=== PATIENT | female | born 1985 | race Caucasian/White ===

== ENCOUNTER → 2021-02-27 | Outpatient (CLI) | payer BC ==
[2021-02-27 09:01] LABS: BASO # 0.1 (0.02-0.10); EOS # 0.3 (0.04-0.40); EOS % 3.5 % (1.0-5.0); HEMATOCRIT 43.4 % (37.0-47.0); HEMOGLOBIN 13.9 g/dL (12.5-16.0); LYMPH# 2.2 (1.50-4.00); MEAN CELL VOLUME 89 fl (78-100); MEAN CORPUSCULAR HEMOGLOBIN 29 pg (27-31); MEAN CORPUSCULAR HGB CONC 32 g/dL (33-37); MEAN PLATELET VOLUME 10.6 fl (7.4-10.4); MONO # 0.5 (0.20-0.80); NEU # 4.7 (1.40-6.50); PLATELET COUNT 265 K/mm3 (130-400); RED BLOOD COUNT 4.86 M/mm3 (4.10-5.30); RED CELL DISTRIBUTION WIDTH 13.2 % (11.5-14.5); WHITE BLOOD COUNT 7.7 K/mm3 (4.8-10.8)
[2021-02-27 09:08] LABS: ALBUMIN 4.1 g/dL (3.5-5.0); POTASSIUM 4.6 mmol/L (3.5-5.1)
[2021-02-27 09:09] LABS: CALCIUM 9.1 mg/dL (8.3-10.5)
[2021-02-27 09:11] LABS: TOTAL PROTEIN 7.7 g/dL (6.4-8.3)
[2021-02-27 09:12] LABS: TOTAL BILIRUBIN 0.5 mg/dL (0.2-1.2)
== END ==
LOC: LAB 08:29
PROVIDERS: Nurse Practitioner
DX: R42 Dizziness and giddiness (principal)

== ENCOUNTER → 2021-08-14 | Outpatient (CLI) | payer BC | LOC: LAB 14:18 | DX: Z11.52 Encounter for screening for COVID-19 (principal); J06.9 Acute upper respiratory infection, unspecified; Z20.822 Contact with and (suspected) exposure to COVID-19 ==

== ENCOUNTER → 2021-09-11 | Outpatient (CLI) | payer BC | LOC: RAD 15:14 | DX: M79.672 Pain in left foot (principal) ==

== ENCOUNTER → 2021-09-18 | Outpatient (CLI) | payer BC ==
[2021-09-18 11:29] LABS: BASO # 0.09 K/mm3 (0.02-0.10); EOS # 0.32 K/mm3 (0.04-0.40); EOS % 3.7 % (1.0-5.0); HEMOGLOBIN 14.5 g/dL (12.5-16.0); LYMPH# 2.87 K/mm3 (1.50-4.00); MEAN CELL VOLUME 88 fl (78-100); MEAN CORPUSCULAR HEMOGLOBIN 29 pg (27-31); MEAN CORPUSCULAR HGB CONC 33 g/dL (33-37); MEAN PLATELET VOLUME 10.6 fl (7.4-10.4); MONO # 0.56 K/mm3 (0.20-0.80); NEU # 4.67 K/mm3 (1.40-6.50); PLATELET COUNT 269 K/mm3 (130-400); RED BLOOD COUNT 4.98 M/mm3 (4.10-5.30); RED CELL DISTRIBUTION WIDTH 12.7 % (11.5-14.5); WHITE BLOOD COUNT 8.6 K/mm3 (4.8-10.8)
[2021-09-18 11:40] LABS: POTASSIUM 4.6 mmol/L (3.5-5.1)
[2021-09-18 11:41] LABS: CALCIUM 9.7 mg/dL (8.3-10.5)
[2021-09-18 11:42] LABS: TOTAL PROTEIN 8.1 g/dL (6.4-8.3)
[2021-09-18 11:44] LABS: TOTAL BILIRUBIN 0.3 mg/dL (0.2-1.2)
== END ==
LOC: LAB 10:42
PROVIDERS: Family Medicine
DX: Z00.00 Encounter for general adult medical examination without abnormal findings (principal); E55.9 Vitamin D deficiency, unspecified; E78.5 Hyperlipidemia, unspecified

== ENCOUNTER → 2021-10-19 | Outpatient (CLI) | payer BC | LOC: RAD 15:12 | DX: M79.672 Pain in left foot (principal) ==

== ENCOUNTER 2021-12-09 13:10 | Emergency (ER) | payer BC ==
[~2021-12-09] VITALS: Ht 170.2 cm; Wt 90.5 kg
[2021-12-09 13:45] LABS: BASO # 0.03 K/mm3 (0.02-0.10); EOS # 0.13 K/mm3 (0.04-0.40); EOS % 2.3 % (1.0-5.0); HEMATOCRIT 48.6 % (37.0-47.0); HEMOGLOBIN 16.2 g/dL (12.5-16.0); LYMPH# 1.68 K/mm3 (1.50-4.00); MEAN CELL VOLUME 87 fl (78-100); MEAN CORPUSCULAR HEMOGLOBIN 29 pg (27-31); MEAN CORPUSCULAR HGB CONC 33 g/dL (33-37); MEAN PLATELET VOLUME 11.2 fl (7.4-10.4); MONO # 0.34 K/mm3 (0.20-0.80); NEU # 3.39 K/mm3 (1.40-6.50); PLATELET COUNT 220 K/mm3 (130-400); RED BLOOD COUNT 5.62 M/mm3 (4.10-5.30); RED CELL DISTRIBUTION WIDTH 12.6 % (11.5-14.5); WHITE BLOOD COUNT 5.6 K/mm3 (4.8-10.8)
[2021-12-09 13:50] LABS: POTASSIUM 3.7 mmol/L (3.5-5.1); SODIUM 139 mmol/L (136-145)
[2021-12-09 13:51] LABS: ALBUMIN 4.4 g/dL (3.5-5.0)
[2021-12-09 13:52] LABS: CALCIUM 9.5 mg/dL (8.3-10.5)
[2021-12-09 13:54] LABS: GLUCOSE 91 mg/dL (65-105); TOTAL PROTEIN 8.5 g/dL (6.4-8.3)
[2021-12-09 13:55] LABS: CARBON DIOXIDE 23 mmol/L (22-29); TOTAL BILIRUBIN 0.6 mg/dL (0.2-1.2)
[2021-12-09 13:59] LABS: AST-SGOT 39 U/L (5-34)
[2021-12-09 14:01] LABS: ALT/SGPT 59 U/L (0-55)
[2021-12-09 14:19] LABS: D-DIMER 0.48 mg/L FEU (0.15-0.50)
[2021-12-09 14:20] LABS: TROPONIN-I < 0.030 ng/mL (<0.030)
[2021-12-09] MEDS ORDERED: RT ALBUTEROL CC18 GM IH (14:58)
[2021-12-09] MEDS ORDERED: MORGIDOX 2X100100 MG PO (14:58)
[2021-12-09 15:18] VITALS: BP 133/78
== END 2021-12-09 15:18 | disposition home or self-care (01) ==
LOC: ED 13:10
PROVIDERS: Physician Assistant
DX: U07.1 COVID-19 (principal); J32.9 Chronic sinusitis, unspecified; Z73.0 Burn-out

== ENCOUNTER → 2024-01-25 | Outpatient (CLI) | payer OTHER ==
[~2024-01-25] MED LIST: MORGIDOX 2X100100 MG PO; RT ALBUTEROL CC18 GM IH
[2024-01-26 12:04] LABS: ANA SCREEN with REFLEX Negative (Negative)
== END ==
LOC: RAD 10:24
PROVIDERS: Nurse Practitioner
DX: M25.50 Pain in unspecified joint (principal)

== ENCOUNTER → 2024-07-02 | Outpatient (CLI) | payer OTHER | LOC: RAD 12:30 | DX: M50.322 Other cervical disc degeneration at C5-C6 level (principal); M50.323 Other cervical disc degeneration at C6-C7 level ==